=== PATIENT | female | born 1995 | race African-American/Black ===

== ENCOUNTER 2022-11-26 16:46 | Emergency (ER) | payer BC ==
[~2022-11-26] VITALS: Ht 170.2 cm; Wt 77.0 kg
[2022-11-26 16:49] VITALS: BP 106/79
== END 2022-11-26 17:53 | disposition home or self-care (01) ==
LOC: ER 16:46
DX: F41.9 Anxiety disorder, unspecified (principal); R00.0 Tachycardia, unspecified; F32.9 Major depressive disorder, single episode, unspecified
CPT/HCPCS: 99283